=== PATIENT | male | born 1960 | race African-American/Black ===

== ENCOUNTER 2020-01-18 17:14 | Observation (INO) | payer BC, SELFPAY ==
--- NOTE | ~2020-01-18 | CT_ITS ---
EXAMINATION: CT abdomen pelvis wo con DATE: 01/18/2020 22:30 INDICATION: Left-sided upper abdominal pain TECHNIQUE: Computed tomography (CT) of the abdomen and pelvis was performed without intravenous contr ast. Automated exposure control and iterative reconstruction technique were employed. The dose-length product was 954.24 mGy-cm. COMPARISON: None FINDINGS: Patchy groundglass opacities in the bilateral lower lobes, left greater than right. Heart size is nor mal. Coronary artery stenting. No pericardial or pleural effusion. Small sliding-type hiatal hernia. A few small low-attenuation hepatic lesions the largest measuring 1 cm in the right hepatic lobe most likely representing hepatic cysts with differential including hemangioma. Gallbladder, spleen, pancr eas, bilateral adrenal glands and left kidney are normal. 3 mm nonobstructing stone in a middle calyx of the right kidney. Bladder is normal. A few scattered colonic diverticula without adjacent inflamm atory change to suggest diverticulitis. Small bowel and appendix are normal. No free intraperitoneal gas or fluid. No pathologically enlarged abdominal or pelvic lymphadenopathy. Moderate bilateral hip osteoarthritis. IMPRESSION: 1. Patchy groundglass opacities in the bilateral lower lobes concerning for pneumonia. Differential w ould include aspiration, atelectasis and pulmonary edema. Reviewed, dictated and finalized at location A. IMPRESSION: 1. Patchy groundglass opacities in the bilateral lower lobes concerning for pne umonia. Differential would include aspiration, atelectasis and pulmonary edema.
--- NOTE | ~2020-01-18 | XR_ITS ---
EXAMINATION: XR chest 2V DATE: 01/18/2020 20:04 INDICATION: Soreness of breath and left-sided chest pain TECHNIQUE: PA and lateral views of the chest were obtained. COMPARISON: Chest radiograph dated 05/10/2018 and 08/27/2017 FINDINGS: The lungs are clear with no focal airspace opacities, pulmonary edema, pleural effusion or pneumothor ax. The cardiomediastinal silhouette is normal. Mild thoracic spondylosis. IMPRESSION: 1. No acute cardiopulmonary disease. Reviewed, dictated and finalized at location A.
[2020-01-18 17:21] VITALS: BP 147/87; PULSE 93; RESP 16; TEMP 36.5; O2SAT 99
--- NOTE | 2020-01-18 17:21 | ECG_ITS ---
Measurements Intervals [place] Rate: 89 P: 40 [place]: 166 QRS: -2 QRSD: 81 T: 1 QT: 331 QTc: 404 Interpretive Statements SINUS RHYTHM NONSPECIFIC T-WAVE ABNORMALITY- ANT/INF LEADS BORDERLINE ECG Electronically Signed On 01-18-2020 21:04:24 CDT by Bryan Greenfield D.O.
[2020-01-18 17:38] LABS: Basophils Percent Auto 0.4 % (0.2-1.2); Eosinophils Absolute Auto 0.3 K/mm3 (0-0.3); Eosinophils Percent Auto 3.3 % (0-4.4); Hematocrit 36.3 % (42.0-52.0); Hemoglobin 12.3 g/dL (14.0-18.0); Immature Granulocyte Absolute 0.02 K/mm3 (0.00-0.031); Immature Granulocyte Percent A 0.2 % (0-0.5); Lymphocytes Absolute Auto 2.35 K/mm3 (0.9-3.2); Lymphocytes Percent Auto 25.8 % (18.3-44.2); Mean Corpuscular HGB Conc 33.9 g/dl (32-36); Mean Corpuscular Hemoglobin 33.3 pg (26-34); Mean Corpuscular Volume 98.4 fl (80-100); Mean Platelet Volume 10.7 fl (7.4-10.4); Monocytes Absolute Auto 0.6 K/mm3 (0.1-0.6); Neutrophils Absolute Auto 5.8 K/mm3 (1.3-6.7); Neutrophils Percent Auto 63.3 % (45.5-73.1); Platelet Count Result 227 k/mm3 (150-375); Red Blood Count 3.69 M/mm3 (4.6-6.20); White Blood Count 9.1 K/mm3 (4.5-10.0)
[2020-01-18 17:46] LABS: Prothrombin Time 12.5 Seconds (11.1-14.7)
[2020-01-18 18:00] LABS: Anion Gap 9 mmol/L (8-16); Blood Urea Nitrogen 28 mg/dL (9-20); Calcium 9.4 mg/dL (8.4-10.2); Carbon Dioxide 27 mmol/L (22-30); Chloride 103 mmol/L (98-107); Estimated CRCL calculation 50 ml/min; Estimated Glomerular Filt Rate 51; Glucose 104 mg/dL (75-110); Potassium 3.8 mmol/L (3.4-5.0); Sodium 139 mmol/L (137-145)
[2020-01-18 18:11] LABS: Troponin I 0.023 ng/mL (0.000-0.034)
[2020-01-18 20:45] VITALS: BP 160/78; PULSE 71; RESP 18; TEMP 36.4; O2SAT 97
[2020-01-18 21:13] LABS: Troponin I < 0.012 ng/mL (0.000-0.034)
--- NOTE | 2020-01-18 22:01 | ED.CHESTPAIN ---
HPI - Chest Pain General Chief Complaint: Chest Pain Stated Complaint: cp Time Seen by Provider: 01/18/20 21:52 Source: RN notes reviewed History of Present Illness HPI narrative: Patient presents emergency room from home for left-sided chest pain. Patient states that pain is been occurring intermittently for the past 3 weeks. The pain is located left chest with radiation to the right shoulder. States he has a history of 4 previous stents and is followed by Dr. Gallardo. He states that he has tried nitro at home that had initially helped but is no longer helping with the pain. He denies any fevers or chills shortness of breath nausea vomiting or any other symptoms Related Data Home Medications Medication Instructions Recorded Confirmed amlodipine 03/10/19 atorvastatin 03/10/19 clopidogrel 03/10/19 doxepin 03/10/19 duloxetine mg PO 03/10/19 ergocalciferol (vitamin D2) unit 03/10/19 [Vitamin D2] furosemide 03/10/19 gabapentin 03/10/19 losartan 03/10/19 metoprolol tartrate 03/10/19 spironolactone 03/10/19 Allergies Allergy/AdvReac Type Severity Reaction Status Date / Time No Known Drug Allergies Allergy Unknown * Verified 03/10/19 14:58 Review of Systems Review of Systems: Narrative: Gen.: Denies fevers or chills ENT: Denies congestion Respiratory: Denies shortness of breath or cough CV: See HPI GI: Denies abdominal pain nausea, emesis or diarrhea denies burning, urgency, frequency or hematuria Musculoskeletal: Denies back pain or muscle pain Neuro: Denies numbness, tingling, weakness or focal weakness Skin: Denies rash Except as documented, all other systems reviewed and negative PMF Past Medical History Medical History Arthritis CAD (coronary artery disease) Depression GERD (gastroesophageal reflux disease) History of angina History of kidney stones Hypercholesteremia Hypertension Meniere's disease Pneumonia Surgical History Surgical History (Updated 03/10/19 @ 15:45 by Favian Villeda) History of inguinal hernia repair History of tonsillectomy Hx of cardiac cath stents x4 Social History Social History Gender identity (if verbalized by the patient): Male Exam Narrative: Exam Narrative: APPEARANCE: No acute distress, nontoxic, resting in bed HEENT: Normocephalic, atraumatic, OMM RESPIRATORY: No respiratory distress, clear to auscultation bilaterally with no rhonchi wheezing or rales CARDIOVASCULAR: RRR s murmur ABDOMINAL: Soft, nondistended, tender palpation epigastric and left upper quadrant, no tenderness right upper quadrant, right lower quadrant left lower quadrant, no rebound or guarding MUSCULOSKELETAl: Moves all extremities. No clubbing, cyanosis or edema. NEURO: Awake and alert. Following commands, speech normal, no focal deficits SKIN:: Warm, dry. Normal Color PSYCHIATRIC: Normal affect/mood Course Course Emergency Course: Patient has minimal change with GI cocktail and resolution of pain with Nitropaste Plan CT scan again discussed with patient he denies any fevers or chills cough or shortness of breath Discussed with Dr. Watkins presentation work-up. Agrees with consult this time. Recommends no further anticoagulation as patient is already on daily aspirin and Plavix Discussed Dr. Peraza presentation work-up. Agrees with admission at this time. Discussed CT with Dr. Peraza no further testing at this time we will continue to observe Discussed with patient and family results of workup and diagnosis. Discussed need for admission. Patient and family understand and agree to current treatment plan Vital Signs Vital signs: Vital Signs Temperature 97.7 F 01/18/20 17:21 Pulse Rate 93 01/18/20 17:21 Respiratory Rate 16 01/18/20 17:21 Blood Pressure 147/87 H 01/18/20 17:21 Pulse Oximetry 99 01/18/20 17:21 Temperature 97.6 F 09
[2020-01-18 22:12] VITALS: BP 153/90; PULSE 82; RESP 18; O2SAT 100
[2020-01-18 22:25] LABS: Alanine Aminotransferase 17 U/L (4-50); Albumin Level 4.6 g/dL (3.5-5.1); Alkaline Phosphatase 102 U/L (38-126); Aspartate Amino Transferase 32 U/L (17-59); Bilirubin,Total 0.9 mg/dL (0.2-1.3); Lipase 35 U/L (23-300)
[2020-01-18 23:24] LABS: NT Pro B Type Natriuretic Pept 42 PG/ML (5-100)
[2020-01-18] MEDS: NITROGLYCERIN OINTMENT 1 INCH DOSE TRANSDERM (23:37)
[2020-01-19] VITALS (11 sets, daily range): BP systolic 129–157; BP diastolic 67–90; PULSE 65–79; RESP 18–20; TEMP 36.1–36.6; O2SAT 96–99; BMI 33.5
[2020-01-19 00:17] LABS: Troponin I < 0.012 ng/mL (0.000-0.034)
--- NOTE | 2020-01-19 01:45 | ADMGEN ---
This patient, Sammy Escamilla, was admitted to IMU Room 210-01 ([id number]). Patient/family oriented to hospital policies and general routines including ID bracelet, bed and alarms, visiting hours, pain management, procedures, bathroom and other care routines, personal items, smoking policy, room service/diet, and visiting hours. Valuables list has been completed. Information on how to activate the Rapid Response Team has been discussed. Patient/Family are encouraged to report perceived risks to care and to ask questions if they do not understand what they are told or what they should do.
--- NOTE | 2020-01-19 02:38 | ECG_ITS ---
Measurements Intervals [place] Rate: 71 P: 42 [place]: 196 QRS: -4 QRSD: 81 T: -10 QT: 386 QTc: 420 Interpretive Statements SINUS RHYTHM NONSPECIFIC T-WAVE ABNORMALITY- ANT/INF LEADS BASELINE ARTIFACT- I, II, III, AVR, AVF BORDERLINE ECG Electronically Signed On 01-19-2020 11:07:48 CDT by Bryan Greenfield D.O.
--- NOTE | 2020-01-19 03:12 | PM.IMHP ---
H&P: HPI History of Present Illness Date/Time: 01/19/20 03:12 Chief complaint: Chest pain Narrative: This is a pleasant 59-year-old male with known history of coronary artery disease status post #4 stents, Rheumatoid arthritis, hypertension, and hyperlipidemia who presented to the hospital for evaluation of severe left-sided chest pain. The patient has had intermittent left-sided chest pain for over a month now. He describes his chest pain as if an elephant was sitting on his chest. The patient's chest pain comes and goes without any rhyme or reason and he denies that his chest pain is positional, exertional, or pleuritic. The patient was previously using nitroglycerin for his chest pain although today that was ineffective. Around 4:00 p.m. this afternoon he started to develop severe left-sided chest pain that seemed to radiate towards his shoulder and did not improve with any medications at home. He decided to come to the hospital for evaluation. He denies any associated symptoms of nausea, vomiting, diaphoresis, or shortness of breath. patient is known to take aspirin daily. His last cardiac angiogram was when he had 4 stents placed. His last stress test was at [facility] approximately 6 months ago which he believes was normal at that time. the patient was evaluated emergency room this evening and his initial troponin was negative. EKG was unremarkable for any ST segment changes. ER provider has consulted Cardiology who has asked that we admit the patient to the hospital for cardiac rule out. On further questioning the patient denies any fevers, chills, headache, cough, shortness of breath, abdominal pain, nausea, vomiting, dysuria, diarrhea, hematuria, lower extremity swelling, lower extremity pain, or focal neurological deficits. No other complaints at this time and on my encounter with the patient he is asymptomatic. Review of Systems Review of Systems: All systems reviewed & are unremarkable except as noted in HPI and below PMFSH Past Medical History Medical History Arthritis CAD (coronary artery disease) Depression GERD (gastroesophageal reflux disease) History of angina History of kidney stones Hypercholesteremia Hypertension Meniere's disease Pneumonia Surgical History Surgical History History of inguinal hernia repair History of tonsillectomy Hx of cardiac cath stents x4 Family History Family History Mother Myocardial infarct Cancer Hypertension Father Myocardial infarct Social History Social History Smoking status: Never smoker Second hand tobacco smoke exposure: No Alcohol intake: current Substance use: never Substance use type: does not use Gender identity (if verbalized by the patient): Male Spiritual care concerns: No Meds Home Medications and Allergies Home Medications Medication Instructions Recorded Confirmed Type amlodipine 10 mg PO DAILY 03/10/19 01/19/20 History atorvastatin 40 mg PO DAILY 03/10/19 01/19/20 History clopidogrel 75 mg PO DAILY 03/10/19 01/19/20 History doxepin 25 mg PO DAILY 03/10/19 01/19/20 History duloxetine 60 mg PO DAILY 03/10/19 01/19/20 History ergocalciferol (vitamin D2) 5,000 unit PO DAILY 03/10/19 01/19/20 History [Vitamin D2] furosemide 20 mg PO DAILY 03/10/19 01/19/20 History gabapentin 1,200 mg PO HS 03/10/19 01/19/20 History losartan 100 mg PO DAILY 03/10/19 01/19/20 History metoprolol tartrate 25 mg PO BID 03/10/19 01/19/20 History spironolactone 25 mg PO DAILY 03/10/19 01/19/20 History aspirin 81 mg PO DAILY 01/19/20 01/19/20 History losartan 100 mg PO DAILY 01/19/20 01/19/20 History oxycodone 40 mg PO BID 01/19/20 01/19/20 History oxycodone-acetaminophen [Percocet] 1 tablet PO Q4H PRN 01/19/20
[2020-01-19] MEDS: SODIUM CHLORIDE 0.9% IV 1,000 ML 80 ML IV CONT (03:31)
[2020-01-19 05:45] LABS: Cholesterol 143 mg/dL (0-200); HDL Direct 38 mg/dL; Triglycerides 156 mg/dL (<150)
[2020-01-19 05:51] LABS: Anion Gap 5 mmol/L (8-16); Blood Urea Nitrogen 21 mg/dL (9-20); Calcium 8.8 mg/dL (8.4-10.2); Carbon Dioxide 31 mmol/L (22-30); Chloride 104 mmol/L (98-107); Estimated CRCL calculation 72 ml/min; Estimated Glomerular Filt Rate > 60; Glucose 130 mg/dL (75-110); Sodium 140 mmol/L (137-145)
[2020-01-19 05:55] LABS: LDL Cholesterol Direct 76 mg/dL
--- NOTE | 2020-01-19 09:23 | PM.CNCAR ---
Assessment and Plan Assessment and plan (1) Atypical chest pain: Code(s): R07.89 - Other chest pain Status: Acute Assessment and Plan: 59-year-old male with CAD, history of multiple PCI/stent placements of LAD, RCA and LCX; hypertension, dyslipidemia. Patient presented with symptoms of chest pain with features somewhat atypical for myocardial ischemia. His EKG does not show any acute ST segment abnormality, serial troponins are negative. Apparently, patient had stress test earlier this year at [facility] which according patient was unremarkable. -at this time, continuation of optimal medical treatment would be appropriate which includes dual antiplatelet therapy, beta-keith, ARB and statin. -recent stress test results will be requested from outside hospital. Need for further ischemic evaluation can be determined as an outpatient based on patient's clinical course. 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 (2) CAD (coronary artery disease): Code(s): I25.10 - Atherosclerotic heart disease of [place] coronary artery without angina pectoris Status: Chronic History of Present Illness History of Present Illness Consult date/time: 01/19/20 09:23 Date of consult: 01/19/2020 Reason for consult: Chest pain Requesting physician: Chief complaint: Chest pain HPI: 59-year-old male with CAD, history of multiple PCI/stent placements of LAD, RCA and LCX; hypertension, dyslipidemia, CKD. Patient presented to [facility] on 01/18/2020 with complaints of chest discomfort. Patient reports that he has been experiencing episodes of chest discomfort for about 1 month. He describes the chest pain as sharp sensation in the left inframammary area which radiates in a bandlike fashion posteriorly, last for 5-10 seconds, and is nonexertional. Patient denies any chest discomfort with activity. He denies shortness of breath, palpitation, dizziness or syncope. Patient reports that he had stress test done at [facility] earlier distally are which according to patient was unremarkable. Patient states that his primary care physician ordered that test. Review of patient's old medical records indicate that he had cardiac catheterization done on 10/24/2017 at [facility] by Dr. Lira in the setting of abnormal TID on MPI. His cardiac catheterization reportedly showed normal left main, patent LAD and proximal-mid RCA stent; minimal luminal irregularities LCX. He was continued on optimal medical treatment. EKG on this admission which I personally evaluated shows sinus rhythm, nonspecific T-wave abnormality, not significantly changed compared to old EKG. Serial troponins are negative. He reports compliance with current medical regimen including antiplatelet therapy. Patient is a nonsmoker. Reason For Visit: Chest pain Review of Systems Review of Systems: Narrative: General: Negative for fever, chills, fatigue Psychological: Negative for anxiety, depression Ophthalmic: negative for loss of vision ENT: Negative for epistaxis, headaches Allergy and immunology: Negative for hives, nasal congestion Hematologic and lymphatic: Negative for overt bleeding problems Endocrine: Negative for hot flashes, palpitations Respiratory: Negative for cough, hemoptysis Cardiovascular: Positive for nonexertional chest pain; negative for shortness of breath, leg swelling, palpitations, dizziness, syncope Gastrointestinal: Negative for abdominal pain, nausea, vomiting, hematochezia Musculoskeletal: Negative for myalgia, joint pains Neurological: Negative for weakness Dermatological: Negative for rash, skin discoloration PMFSH Past Medical History Medical History Arthritis CAD (coronary artery disease) Depression GERD (gastroesophageal reflux disease) History of buster
[2020-01-19] MEDS: amLODIPine BESYLATE 5 MG TABLET 10 MG PO (09:44)
[2020-01-19] MEDS: ATORVASTATIN 40 MG TABLET PO (09:44)
[2020-01-19] MEDS: DULoxetine HCL 60 MG CAPSULE.DR PO (09:44)
[2020-01-19] MEDS: CHOLECALCIFEROL 1,000 UNITS TABLET 5000 UNITS PO (09:45)
[2020-01-19] MEDS: ASPIRIN 81 MG CHEWABLE TABLET PO (09:45)
[2020-01-19] MEDS: METOPROLOL TARTRATE 25 MG TABLET PO (09:45)
[2020-01-19] MEDS: DOXEPIN HCL 25 MG CAPSULE PO (09:45)
[2020-01-19] MEDS: CLOPIDOGREL BISULFATE 75 MG TABLET PO (09:46)
[2020-01-19] MEDS: oxyCODONE/ACETAMINOPHEN (*CRX) 5-325 MG TABLET 1 TABLET PO (10:14)
[2020-01-19] MEDS: oxyCODONE HCL (*CRX) 20 MG TAB SR 12HR 40 MG PO (10:15)
[2020-01-19] MEDS: OXYCODONE 5 MG TABLET PO (10:15)
--- NOTE | 2020-01-19 12:59 | PM.DS ---
DS: Admitting Diagnosis Admitting Diagnosis Admitting Diagnosis: Chest pain DS: Discharge Diagnosis Discharge Diagnosis (1) Chest pain: Code(s): R07.9 - Chest pain, unspecified Status: Acute Assessment and Plan: Admit for observation to IMU, telemetry, NPO. Trend troponin. Monitor for chest pain. Continue aspirin therapy. Continue nitroglycerin as needed for chest pain. Check lipid panel in a.m.. Cardiology has been consulted by ER provider. Appreciate cardiology input. (2) Acute renal failure: Code(s): N17.9 - Acute kidney failure, unspecified Status: Acute Assessment and Plan: continue IV fluid challenge. Monitor urine output and renal function. Avoid nephrotoxin agents. Renally dose medications. We will consider renal ultrasound if the patient's renal function does not improve in the morning. (3) Chronic anemia: Code(s): D64.9 - Anemia, unspecified Status: Chronic Assessment and Plan: No signs of acute blood loss. Likely anemia of chronic disease. Monitor H&H, transfuse p.r.n.. (4) CAD (coronary artery disease): Code(s): I25.10 - Atherosclerotic heart disease of [place] coronary artery without angina pectoris Status: Chronic Assessment and Plan: Monitor for chest pain. Continue aspirin, Plavix, and beta-keith. (5) GERD (gastroesophageal reflux disease): Code(s): K21.9 - Gastro-esophageal reflux disease without esophagitis Status: Chronic Assessment and Plan: Continue Protonix therapy. (6) Hypercholesteremia: Code(s): E78.00 - Pure hypercholesterolemia, unspecified Status: Chronic Assessment and Plan: continue atorvastatin. (7) Hypertension: Code(s): I10 - Essential (primary) hypertension Status: Chronic Assessment and Plan: Stable. Monitor blood pressure. Continue amlodipine and metoprolol. (8) Rheumatoid arthritis: Code(s): M06.9 - Rheumatoid arthritis, unspecified Status: Chronic Assessment and Plan: Stable. DS: Summary Hospital Course Reason for hospitalization: Chief complaint: Chest pain Narrative: This is a pleasant 59-year-old male with known history of coronary artery disease status post #4 stents, Rheumatoid arthritis, hypertension, and hyperlipidemia who presented to the hospital for evaluation of severe left-sided chest pain. The patient has had intermittent left-sided chest pain for over a month now. He describes his chest pain as if an elephant was sitting on his chest. The patient's chest pain comes and goes without any rhyme or reason and he denies that his chest pain is positional, exertional, or pleuritic. The patient was previously using nitroglycerin for his chest pain although today that was ineffective. Around 4:00 p.m. this afternoon he started to develop severe left-sided chest pain that seemed to radiate towards his shoulder and did not improve with any medications at home. He decided to come to the hospital for evaluation. He denies any associated symptoms of nausea, vomiting, diaphoresis, or shortness of breath. patient is known to take aspirin daily. His last cardiac angiogram was when he had 4 stents placed. His last stress test was at [facility] approximately 6 months ago which he believes was normal at that time. the patient was evaluated emergency room this evening and his initial troponin was negative. EKG was unremarkable for any ST segment changes. ER provider has consulted Cardiology who has asked that we admit the patient to the hospital for cardiac rule out. On further questioning the patient denies any fevers, chills, headache, cough, shortness of breath, abdominal pain, nausea, vomiting, dysuria, diarrhea, hematuria, lower extremity swelling, lower extremity pain, or focal neurological deficits. No other complaints at this time and on my encounter with the patient he i
== END 2020-01-19 13:35 | disposition home or self-care (01) ==
LOC: ANHED 01-19 00:17 → ANHIMU 01-19 03:17
PROVIDERS: Emergency Medicine; Admitting Provider Family Medicine; Emergency Provider Emergency Medicine; Visit Provider Family Medicine
DX: R07.9 Chest pain, unspecified (principal); Z95.5 Presence of coronary angioplasty implant and graft; Z79.02 Long term (current) use of antithrombotics/antiplatelets; I25.10 Atherosclerotic heart disease of native coronary artery without angina pectoris; K21.9 Gastro-esophageal reflux disease without esophagitis; E78.00 Pure hypercholesterolemia, unspecified; I10 Essential (primary) hypertension; H81.09 Meniere's disease, unspecified ear; R91.8 Other nonspecific abnormal finding of lung field; N17.9 Acute kidney failure, unspecified; D64.9 Anemia, unspecified; M06.9 Rheumatoid arthritis, unspecified
CPT/HCPCS: 36415; 71046; 74176; 80048; 80061; 80076; 83690; 83880; 84484; 85025; 85610; 85730; 93005; 96360; 96361; 99285; A9270; G0378; J7030

== ENCOUNTER 2020-10-04 21:25 | Observation (INO) | payer BC, SELFPAY ==
--- NOTE | ~2020-10-04 | XR_ITS ---
EXAMINATION: XR chest 2V EXAM DATE: 10/04/2020 22:00 INDICATION: Left-sided chest pain, clinical hands, hypertension, 4stent placements. TECHNIQUE: Frontal and lateral projections of the chest obtained and reviewed. Comparison is made to prior examination from 01/18/2020. FINDINGS: The lungs are clear. There are no pleural effusions. The cardiomediastinal silhouette is within normal limits. Left anterior descending coronary artery stents identified. There is no pneumot horax suspected. The bones and soft tissues are unremarkable. IMPRESSION: No acute cardiopulmonary findings. Reviewed, dictated and finalized at location G.
--- NOTE | ~2020-10-04 | NM_ITS ---
EXAMINATION: NM jesus stress w perfusion DATE: 10/06/2020 16:20 INDICATION: Chest pain TECHNIQUE: Rest images were obtained following intravenous administration of 10.3 mCi Tc99m tetrofosm in (Myoview). The patient was infused intravenously with Lexiscan (Regadenoson). Then, 33.6 mCi Tc99m tetrofosmin (Myoview) was administered intravenously, and stress images were obtained. Data was laz nstructed into short axis and horizontal and vertical long axis SPECT images. Gated SPECT images were also obtained. COMPARISON: None. FINDINGS: There is no definite reversible or fixed perfusion abnormality to suggest ischemia or infar ction. There is normal left ventricular chamber size, wall motion and ejection fraction. Left ventr icular ejection fraction measures >70%. IMPRESSION: 1. Normal myocardial perfusion at rest and during stress. 2. Left ventricular ejection fraction measuring >70%. Reviewed, dictated and finalized at location A.
--- NOTE | 2020-10-04 21:34 | ECG_ITS ---
Measurements Intervals [place] Rate: 97 P: 40 [place]: 152 QRS: 5 QRSD: 82 T: 18 QT: 326 QTc: 416 Interpretive Statements SINUS RHYTHM INFERIOR INFARCT, AGE INDETERMINATE BORDERLINE T WAVE ABNORMALITY- ANTERIOR LEADS ABNORMAL ECG Electronically Signed On 10-05-2020 5:50:56 CDT by Bryan Greenfield D.O.
[2020-10-04 21:42] VITALS: BP 124/79; PULSE 99; RESP 20; TEMP 36.7; O2SAT 100
[2020-10-04 21:57] LABS: Basophils Percent Auto 0.6 % (0.2-1.2); Eosinophils Absolute Auto 0.1 K/mm3 (0-0.3); Eosinophils Percent Auto 0.8 % (0-4.4); Hematocrit 39.6 % (42.0-52.0); Hemoglobin 13.2 g/dL (14.0-18.0); Immature Granulocyte Absolute 0.01 K/mm3 (0.00-0.031); Immature Granulocyte Percent A 0.2 % (0-0.5); Lymphocytes Absolute Auto 2.45 K/mm3 (0.9-3.2); Mean Corpuscular HGB Conc 33.3 g/dl (32-36); Mean Corpuscular Hemoglobin 33.2 pg (26-34); Mean Corpuscular Volume 99.7 fl (80-100); Mean Platelet Volume 10.5 fl (7.4-10.4); Monocytes Absolute Auto 0.6 K/mm3 (0.1-0.6); Monocytes Percent Auto 9.2 % (2.6-8.5); Neutrophils Absolute Auto 3.2 K/mm3 (1.3-6.7); Neutrophils Percent Auto 50.2 % (45.5-73.1); Platelet Count Result 333 k/mm3 (150-375); Red Blood Count 3.97 M/mm3 (4.6-6.20); Red Cell Distribution Width 12.3 % (11.5-14.5); White Blood Count 6.3 K/mm3 (4.5-10.0)
[2020-10-04 22:06] LABS: Anion Gap 15 mmol/L (8-16); Blood Urea Nitrogen 21 mg/dL (9-20); Calcium 9.9 mg/dL (8.4-10.2); Carbon Dioxide 21 mmol/L (22-30); Chloride 106 mmol/L (98-107); Estimated CRCL calculation 40 ml/min; Estimated Glomerular Filt Rate 40; Glucose 99 mg/dL (75-110); Potassium 3.8 mmol/L (3.4-5.0); Prothrombin Time 13.7 Seconds (11.1-14.7); Sodium 142 mmol/L (137-145)
[2020-10-04 22:07] LABS: Partial Thromboplastin Time 25.7 SECONDS (22.3-36.8)
[2020-10-04 22:17] LABS: Troponin I 0.016 ng/mL (0.000-0.034)
--- NOTE | 2020-10-04 23:53 | ED.GENADULT ---
HPI - General Adult General Chief complaint: Chest Pain Stated complaint: Chest pain Time Seen by Provider: 10/04/20 23:44 History of Present Illness HPI narrative: Patient 60-year-old gentleman who presents the emergency department with chief complaint of chest pain. Patient reports that for the last couple weeks has been having some discomfort in his chest states that it radiates to his arm the patient states that both a sharp type discomfort and also pressure. Patient reports he has history of multiple stents placed over the years and his last one was done in 2019. Patient states that is not improved by anything patient reports that he saw his primary care physician today and they recommended he come to the emergency department since he has history of heart disease. Patient states he sees Dr. Gallardo for cardiology Related Data Home Medications Medication Instructions Recorded Confirmed amlodipine 10 mg PO DAILY 03/10/19 01/19/20 atorvastatin 40 mg PO DAILY 03/10/19 01/19/20 clopidogrel 75 mg PO DAILY 03/10/19 01/19/20 doxepin 25 mg PO DAILY 03/10/19 01/19/20 duloxetine 60 mg PO DAILY 03/10/19 01/19/20 ergocalciferol (vitamin D2) 5,000 unit PO DAILY 03/10/19 01/19/20 [Vitamin D2] furosemide 20 mg PO DAILY 03/10/19 01/19/20 gabapentin 1,200 mg PO HS 03/10/19 01/19/20 losartan 100 mg PO DAILY 03/10/19 01/19/20 metoprolol tartrate 25 mg PO BID 03/10/19 01/19/20 spironolactone 25 mg PO DAILY 03/10/19 01/19/20 aspirin 81 mg PO DAILY 01/19/20 01/19/20 losartan 100 mg PO DAILY 01/19/20 01/19/20 oxycodone 40 mg PO BID 01/19/20 01/19/20 oxycodone-acetaminophen [Percocet] 1 tablet PO Q4H PRN 01/19/20 01/19/20 pantoprazole [Protonix] 40 mg PO HS 01/19/20 01/19/20 temazepam 30 mg PO HS PRN 01/19/20 01/19/20 Allergies Allergy/AdvReac Type Severity Reaction Status Date / Time No Known Drug Allergies Allergy Unknown * Verified 03/10/19 14:58 Review of Systems Review of Systems: Narrative: A 10 system review of systems was completed on the patient and is negative except for what is stated in the HPI. Nursing and ancillary documentation was reviewed. [facility] Past Medical History Medical History (Updated 10/05/20 @ 04:32 by Anand Gregory MD) Arthritis CAD (coronary artery disease) Depression GERD (gastroesophageal reflux disease) History of angina History of kidney stones Hypercholesteremia Hypertension Meniere's disease Pneumonia Surgical History Surgical History History of inguinal hernia repair History of tonsillectomy Hx of cardiac cath stents x4 Family History Family History Mother Myocardial infarct Cancer Hypertension Father Myocardial infarct Social History Social History Smoking status: Never smoker Second hand tobacco smoke exposure: No Alcohol intake: current Substance use: never Substance use type: does not use Gender identity (if verbalized by the patient): Male Spiritual care concerns: No Exam Narrative: Exam Narrative: GENERAL: Well-appearing, well-nourished, and in no acute distress. HEAD: Normocephalic, atraumatic. EYES: PERRLA and EOMI. ENT: Nares clear, no rhinorrhea or epistaxis. Mucous membranes moist. NECK: Supple. CHEST: Clear to auscultation. No respiratory distress. HEART: Regular rate and rhythm. No murmur heard. Normal peripheral pulses. ABDOMEN: Soft, nontender, nondistended, normal active bowel sounds. EXTREMITIES: Normal range of motion. No edema. SKIN: Warm, dry, no rash. NEURO: No focal deficits. Alert and oriented x3. PSYCH: Normal mood and affect. Course Vital Signs Vital signs: Vital Signs Temperature 36.7 C 10/04/20 21:42 Pulse Rate 99 10/04/20 21:42 Respiratory Rate 20 10/04/20 21:42 Blood Pressure 124/79 10/04/20 21:42 Pulse Oxime
[2020-10-04] MEDS: ASPIRIN 81 MG CHEWABLE TABLET 324 MG PO (23:59)
[2020-10-05] VITALS (48 sets, daily range): BP systolic 135–161; BP diastolic 71–95; PULSE 60–88; RESP 12–18; TEMP 36.1–36.9; O2SAT 94–100; BMI 32.1
[2020-10-05 02:02] LABS: Troponin I 0.016 ng/mL (0.000-0.034)
[2020-10-05] MEDS: SODIUM CHLORIDE 0.9% IV 1,000 ML 999 ML IV CONT (04:53)
[2020-10-05 05:09] LABS: Troponin I 0.021 ng/mL (0.000-0.034)
--- NOTE | 2020-10-05 06:14 | PC.NURSE ---
Floor nurse states room is not ready, that they are cleaning the room .
--- NOTE | 2020-10-05 06:40 | PC.NURSE ---
floor nurse Missy states floor is just now dry and its ok to send pt up.
--- NOTE | 2020-10-05 07:05 | PC.NURSE ---
This patient, Sammy Escamilla, was admitted to IMU Room 212-01. Patient/family oriented to hospital policies and general routines including ID bracelet, bed and alarms, visiting hours, pain management, procedures, bathroom and other care routines, personal items, smoking policy, room service/diet, and visiting hours. Information on how to activate the Rapid Response Team has been discussed. Patient/Family are encouraged to report perceived risks to care and to ask questions if they do not understand what they are told or what they should do.
[2020-10-05] MEDS: SODIUM CHLORIDE 0.9% IV 1,000 ML 125 ML IV CONT ×2 (07:58→16:05)
--- NOTE | 2020-10-05 08:55 | PM.CNCAR ---
Assessment and Plan Additional Plan This is a 60-year-old man known to have multivessel coronary disease has had PCI of all of his coronary arteries in the past. He did have a angiogram most recently in 2018 that did not show any significant coronary lesions. His symptoms with which she presents are rather atypical and there has been a down turn in his renal function by laboratory measurement as I mentioned above. For that reason I would not consider it prudent to return him to the high density press laborer for a follow-up angiogram today. I discussed the option of nuclear stress testing for ischemia evaluation with the patient. He then discussed for a long time that he has had previous admissions with these sorts of symptoms and commonly does have a coronary lesion with which he presents and he would prefer to have a follow-up angiogram performed in this setting. For that reason I told him we will discontinue his furosemide and continue IV saline hydration today. If he shows improvement or hopefully normalization his creatinine we will consider proceeding with a follow-up angiogram tomorrow. Will order another BMP for this evening and again for tomorrow morning. I would recommend continuing the remainder of his medical regimen as detailed in the chart but not be diuretics for the time being. It does not appear that any of his home medications have been ordered at this time. Luan Osei MD [facility] History of Present Illness History of Present Illness Consult date/time: 10/05/20 08:55 Consult reason: chest pain Reason For Visit: Chest pain, renal insufficiency Narrative: This is a 60-year-old man that I am seeing at the request of the hospitalist because of chest pain with which he was admitted from the emergency room last evening. He has a known history of coronary artery disease and follows with Dr. Gallardo of our practice regarding his coronary disease. He states that he has been feeling essentially well in recent months and but about 2-3 weeks ago started to have symptoms that have raise concern on his part. He has episodes where his arms feel weak and his palms become clammy. Some of these episodes are then associated with the sense of some chest pain that he describes as a sharp knife-like pain in the epigastric to low substernal region. The discomfort seems to come and go in unpredictable fashion each episode lasts between 1-2 minutes at a time and then subsides. He indicates these are not occurring in an exertional fashion he has been caring on his normal activities of life and has not been avoiding activity because of this. He saw his primary care physician yesterday who discuss this with him and electrocardiogram was done in the office which he states looked favorable. His physician practices out at [facility]. He was told by his physician to come to the emergency room with the symptoms and so he came over to [facility] last night. The patient's electrocardiogram is benign there are some small inferior Q-waves but there are no changes in the tracing compared to his previous cardiograms in the chart. He has 3 troponin levels that are negative. His laboratory date also demonstrates a decline in his renal function. Creatinine level was 1.2 in December of last year and is now 2.1 giving him an EGFR of under 40. The patient according to our records is not known to have systolic left ventricular dysfunction. The last entry in the chart from Dr. jaime indicates that there was some concern about his renal function and spironolactone was discontinued. He was also taking furosemide. The medication list in the chart includes spironolactone which the patient indicates his an air he has not been taking that medication but he has been on his Lasix. I do not have a specific indication for the loop diuretic upon reviewing the chart. Review of Systems Review of Systems: ROS unobtainable: Yes unobtainable due to medical condition Constitutional: Constit
--- NOTE | 2020-10-05 12:03 | PM.IMHP ---
H&P: HPI History of Present Illness Date/Time: 10/05/20 12:04 Chief Complaint: chest pain Narrative: Patient 60-year-old gentleman who presents the emergency department with chief complaint of chest pain, on and off since past few weeks now. the chest pain is in his left precodrium, sharp stabbing in nature, non radiating. not assocaited with cehst pain or sob, but he gets sweaty in his hands whenever he get them. he also feels he is getting sob to get up and move around. no leg swelling. no nausea, vomiting, abdominal pain. no bleding. he has hx of cardiac stents, one in 2011, then in 2017 and last 2 in 2019. he has not had recent stress test or echo test done. sees Dr. Brand. no fever, chills, cough. Review of Systems Review of Systems: Narrative: - CONSTITUTIONAL: Denies weight loss, fever and chills. - HEENT: Denies changes in vision and hearing - RESPIRATORY: Denies SOB and cough. - CV: Denies palpitations and reports CP. - GI: Denies abdominal pain, nausea, vomiting and diarrhea. - : Denies dysuria and urinary frequency. - MSK: Denies myalgia and joint pain. - SKIN: Denies rash and pruritus. - NEUROLOGICAL: Denies headache and syncope. - PSYCHIATRIC: Denies recent changes in mood. Denies anxiety and depression. All systems reviewed & are unremarkable except as noted in HPI and below Neurologic: Reports weakness Endocrine: Endocrine: Reports fatigue PMFSH Past Medical History Medical History (Updated 10/05/20 @ 04:32 by Anand Gregory MD) Arthritis CAD (coronary artery disease) Depression GERD (gastroesophageal reflux disease) History of angina History of kidney stones Hypercholesteremia Hypertension Meniere's disease Pneumonia Surgical History Surgical History History of inguinal hernia repair History of tonsillectomy Hx of cardiac cath stents x4 Family History Family History Mother Myocardial infarct Cancer Hypertension Father Myocardial infarct Social History Social History Smoking status: Never smoker Second hand tobacco smoke exposure: No Alcohol intake: never Substance use: never Substance use type: does not use Gender identity (if verbalized by the patient): Male Spiritual care concerns: No Meds Home Medications and Allergies Home Medications Medication Instructions Recorded Confirmed Type amlodipine 10 mg PO DAILY 03/10/19 10/05/20 History atorvastatin 40 mg PO DAILY 03/10/19 10/05/20 History clopidogrel 75 mg PO DAILY 03/10/19 10/05/20 History doxepin 50 mg PO HS 03/10/19 10/05/20 History duloxetine 60 mg PO DAILY 03/10/19 10/05/20 History ergocalciferol (vitamin D2) 50,000 unit PO WEEKLY 03/10/19 10/05/20 History [Vitamin D2] furosemide 20 mg PO DAILY 03/10/19 10/05/20 History gabapentin 1,200 mg PO HS 03/10/19 10/05/20 History losartan 100 mg PO DAILY 03/10/19 10/05/20 History metoprolol tartrate 25 mg PO Q12H 03/10/19 10/05/20 History aspirin 81 mg PO DAILY 01/19/20 10/05/20 History oxycodone 40 mg PO Q12H 01/19/20 10/05/20 History oxycodone-acetaminophen [Percocet] 1 tablet PO Q6H PRN 01/19/20 10/05/20 History pantoprazole [Protonix] 40 mg PO HS 01/19/20 10/05/20 History temazepam 30 mg PO HS PRN 01/19/20 10/05/20 History Allergies Allergy/AdvReac Type Severity Reaction Status Date / Time No Known Drug Allergies Allergy Unknown * Verified 10/05/20 07:47 Vital Signs Vital Signs - 24 hr 10/04/20 21:42 10/05/20 00:01 10/05/20 00:02 Temperature 98.1 F Pulse Rate 99 84 83 Respiratory Rate 20 14 Blood Pressure 124/79 161/95 H Pulse Oximetry 100 98 99 10/05/20 00:17 10/05/20 00:29 10/05/20 00:30 Temperature 97.9 F Pulse Rate 79 75 77 Respiratory Rate 18 12 Blood Pressure 161/90 H Pulse Oximetry 99 100 100 10/05/20 00:4
[2020-10-05] MEDS: oxyCODONE HCL (*CRX) 40 MG TAB SR 12HR PO ×2 (13:33→21:13)
[2020-10-05] MEDS: ATORVASTATIN 40 MG TABLET PO (14:24)
[2020-10-05] MEDS: METOPROLOL TARTRATE 25 MG TABLET PO ×2 (14:24→21:13)
[2020-10-05] MEDS: DULoxetine HCL 60 MG CAPSULE.DR PO (14:24)
[2020-10-05] MEDS: CLOPIDOGREL BISULFATE 75 MG TABLET PO (14:24)
[2020-10-05] MEDS: amLODIPine BESYLATE 5 MG TABLET 10 MG PO (14:24)
[2020-10-05 18:31] LABS: Anion Gap 9 mmol/L (8-16); Blood Urea Nitrogen 20 mg/dL (9-20); Calcium 8.9 mg/dL (8.4-10.2); Carbon Dioxide 23 mmol/L (22-30); Chloride 109 mmol/L (98-107); Estimated CRCL calculation 69 ml/min; Estimated Glomerular Filt Rate > 60; Glucose 123 mg/dL (75-110); Potassium 3.7 mmol/L (3.4-5.0); Sodium 141 mmol/L (137-145)
[2020-10-05] MEDS: GABAPENTIN 400 MG CAPSULE 1200 MG PO (21:13)
[2020-10-05] MEDS: DOXEPIN HCL 25 MG CAPSULE 50 MG PO (21:13)
[2020-10-05] MEDS: PANTOPRAZOLE 40 MG TABLET PO (21:13)
[2020-10-06] VITALS (26 sets, daily range): BP systolic 114–142; BP diastolic 58–80; PULSE 59–98; RESP 10–21; TEMP 35.6–37.1; O2SAT 95–100
[2020-10-06] MEDS: SODIUM CHLORIDE 0.9% IV 1,000 ML 125 ML IV CONT ×2 (00:27→08:14)
[2020-10-06 06:16] LABS: Eosinophils Absolute Auto 0.1 K/mm3 (0-0.3); Eosinophils Percent Auto 4.5 % (0-4.4); Hematocrit 32.3 % (42.0-52.0); Hemoglobin 10.5 g/dL (14.0-18.0); Immature Granulocyte Absolute 0.01 K/mm3 (0.00-0.031); Immature Granulocyte Percent A 0.3 % (0-0.5); Lymphocytes Absolute Auto 1.99 K/mm3 (0.9-3.2); Lymphocytes Percent Auto 64.6 % (18.3-44.2); Mean Corpuscular HGB Conc 32.5 g/dl (32-36); Mean Corpuscular Hemoglobin 33.4 pg (26-34); Mean Corpuscular Volume 102.9 fl (80-100); Mean Platelet Volume 10.7 fl (7.4-10.4); Monocytes Absolute Auto 0.3 K/mm3 (0.1-0.6); Monocytes Percent Auto 8.4 % (2.6-8.5); Neutrophils Absolute Auto 0.7 K/mm3 (1.3-6.7); Neutrophils Percent Auto 21.2 % (45.5-73.1); Platelet Count Result 256 k/mm3 (150-375); Red Blood Count 3.14 M/mm3 (4.6-6.20); Red Cell Distribution Width 12.3 % (11.5-14.5); White Blood Count 3.1 K/mm3 (4.5-10.0)
[2020-10-06 06:37] LABS: Anion Gap 6 mmol/L (8-16); Blood Urea Nitrogen 14 mg/dL (9-20); Calcium 8.8 mg/dL (8.4-10.2); Carbon Dioxide 23 mmol/L (22-30); Chloride 112 mmol/L (98-107); Estimated CRCL calculation 82 ml/min; Estimated Glomerular Filt Rate > 60; Glucose 98 mg/dL (75-110); Sodium 141 mmol/L (137-145)
[2020-10-06] MEDS: CLOPIDOGREL BISULFATE 75 MG TABLET PO (08:14)
[2020-10-06] MEDS: ATORVASTATIN 40 MG TABLET PO (08:14)
[2020-10-06] MEDS: oxyCODONE HCL (*CRX) 40 MG TAB SR 12HR PO ×2 (08:15→20:58)
[2020-10-06] MEDS: amLODIPine BESYLATE 5 MG TABLET 10 MG PO (08:15)
[2020-10-06] MEDS: METOPROLOL TARTRATE 25 MG TABLET PO ×2 (08:15→20:57)
[2020-10-06] MEDS: ASPIRIN 81 MG CHEWABLE TABLET PO (08:15)
[2020-10-06] MEDS: DULoxetine HCL 60 MG CAPSULE.DR PO (08:15)
--- NOTE | 2020-10-06 10:51 | WPDHPUPDATE1 ---
History and Physical Update Update Date/Time: 10/06/20 10:51 History and Physical has been reviewed, including an updated exam of the patient. There are NO changes in the patient's condition. Risks, benefits, and alternatives have been discussed and questions answered. Patient agrees to proceed with procedure.
--- NOTE | 2020-10-06 10:52 | P.PCNCC_ITS ---
Cardiac Cath Procedure Note Date of procedure:: 10/06/20 Performing physician:: Alison Lira MD Date of service: 10/06/2020 Indication:: recurrent chest pain. Brief clinical history:: this is the 60-year-old patient with past history of hypertension, coronary artery disease with stent in the RCA and distal LAD who presents to us for recurrent episodes of chest pain. On admission his creatinine was 2 and today is 1 after IV hydration. Risks and benefits of cardiac catheterization discussed with the patient agrees to proceed. Procedure Procedure performed:: 1-Moderate sedation that started at 11:19 a.m.and ended at 11:52 a.m. with total duration 43 minutes using 3mg of Versed and 75mcg fentanyl. The registered nurse was arpit white 2-Selective left and right coronary angiogram. 3-Left heart catheterization with measurement of LVEDP and measurement of gradient across aortic valve. 4-Right common femoral arterial angiogram. 5-Deployment of 6 [place] Angio-Seal. 6- attempted IFR LAD which could not be done due to technical issues in the malthouse laborer. Sedation/Medication given:: Moderate sedation. Access site:: Right common femoral artery. Estimated blood loss:: 10cc Procedure note:: After informed consent patient was brought in to malthouse laborer with the was draped and prepped in usual manner. Moderate sedation was given and the right groin was infiltrated using 1% lidocaine. Five [place] sheath was obtained using micropuncture needle and the modified Seldinger technique. Selective left coronary angiogram was done using JL4 catheter with the tip of the catheter placed in the left main coronary artery. Selective right coronary angiogram was done using JR4 catheter with the tip of the catheter placed to the right coronary artery. After that 5 [place] pigtail catheter was advanced across the aortic valve into the left ventricle with measurement of LVEDP and measurement of gradient across aortic valve. Right common femoral arterial angiogram was done. after that the 5 [place] sheath was upgraded to 6 [place] sheath then we went with a guide catheter 6 [place] CLS 3.5. Pressure wire zeroed outside the body however when we advanced it to the aorta we could not see aortic pressure. Troubleshooting was done and then changing of IFR wire was done and again we faced similar issue. Unfortunately we could not complete IFR measurement. 6 [place] Angio-Seal deployed Findings:: 1- left coronary artery is a large artery that divides into large LAD, large circumflex artery. Left main isFree of disease. 2- left anterior descending artery is a large artery that runs and wraps around the apex. Has a patent stent distally at the apex. In the mid segment there is about 60% stenosis and Worst in the NOLAND caudal views. large diagonal branch of the segment with diffuse irregularities. 3- leftcircumflex artery is a large artery With minimal irregularities in the mid segment large OM1 with minimal irregularities. 4- right coronary artery is Large artery dominant and has patent stents proximally and then the mid segment. 5- LVEDP was 15 mm Hg and no gradient across aortic valve. 6- opening arterial pressure was 1671/100 and closing pressure was 140/90 7- right femoral artery angiogram shows no significant disease in the right common femoral artery. 8- attempted IFR of the LAD which could not be performed due to technical issues in the malthouse laborer. Conclusion:: Intermediate lesion in the LAD with inability to do IFR in the malthouse laborer despite attempt to do that due to technical issues. Assessment and Plan Additional Plan Proceed with Lexiscan stress test
--- NOTE | 2020-10-06 10:52 | WPDMODSED ---
Moderate Sedation Note-Pt Data Patient Data Allergies Allergy/AdvReac Type Severity Reaction Status Date / Time No Known Drug Allergies Allergy Unknown * Verified 10/05/20 07:47 Home Medications Medication Instructions Recorded Confirmed Type amlodipine 10 mg PO DAILY 03/10/19 10/05/20 History atorvastatin 40 mg PO DAILY 03/10/19 10/05/20 History clopidogrel 75 mg PO DAILY 03/10/19 10/05/20 History doxepin 50 mg PO HS 03/10/19 10/05/20 History duloxetine 60 mg PO DAILY 03/10/19 10/05/20 History ergocalciferol (vitamin D2) 50,000 unit PO WEEKLY 03/10/19 10/05/20 History [Vitamin D2] furosemide 20 mg PO DAILY 03/10/19 10/05/20 History gabapentin 1,200 mg PO HS 03/10/19 10/05/20 History losartan 100 mg PO DAILY 03/10/19 10/05/20 History metoprolol tartrate 25 mg PO Q12H 03/10/19 10/05/20 History aspirin 81 mg PO DAILY 01/19/20 10/05/20 History oxycodone 40 mg PO Q12H 01/19/20 10/05/20 History oxycodone-acetaminophen [Percocet] 1 tablet PO Q6H PRN 01/19/20 10/05/20 History pantoprazole [Protonix] 40 mg PO HS 01/19/20 10/05/20 History temazepam 30 mg PO HS PRN 01/19/20 10/05/20 History Current Medications: Active Medications Acetaminophen (Acetaminophen 325 Mg Tablet) 325 mg PO Q6H PRN PRN Reason: Pain Amlodipine Besylate (Amlodipine Besylate 5 Mg Tablet) 10 mg PO DAILY [facility] Last Admin: 10/06/20 08:15 Dose: 10 mg Documented by: Aspirin (Aspirin 81 Mg Chewable Tablet) 81 mg PO DAILY [facility] Last Admin: 10/06/20 08:15 Dose: 81 mg Documented by: Atorvastatin Calcium (Atorvastatin 40 Mg Tablet) 40 mg PO DAILY [facility] Last Admin: 10/06/20 08:14 Dose: 40 mg Documented by: Clopidogrel Bisulfate (Clopidogrel Bisulfate 75 Mg Tablet) 75 mg PO DAILY [facility] Last Admin: 10/06/20 08:14 Dose: 75 mg Documented by: Doxepin HCl (Doxepin Hcl 25 Mg Capsule) 50 mg PO [facility] Last Admin: 10/05/20 21:13 Dose: 50 mg Documented by: Duloxetine HCl (Duloxetine Hcl 60 Mg Capsule.) 60 mg PO DAILY [facility] Last Admin: 10/06/20 08:15 Dose: 60 mg Documented by: Ergocalciferol (Ergocalciferol 50,000 Unit Capsule) 50,000 unit PO Tu@0900 [facility] Gabapentin (Gabapentin 400 Mg Capsule) 1,200 mg PO [facility] Last Admin: 10/05/20 21:13 Dose: 1,200 mg Documented by: Sodium Chloride (Normal Saline Iv) 1,000 mls @ 125 mls/hr IV CONT .Q8H [facility] Last Admin: 10/06/20 08:14 Dose: 125 mls/hr Documented by: Metoprolol Tartrate (Metoprolol Tartrate 25 Mg Tablet) 25 mg PO Q12HR [facility] Last Admin: 10/06/20 08:15 Dose: 25 mg Documented by: Oxycodone HCl (Oxycodone Hcl (*Crx) 40 Mg Tab Sr 12hr) 40 mg PO Q12HR [facility] Last Admin: 10/06/20 08:15 Dose: 40 mg Documented by: Oxycodone HCl (Oxycodone Hcl (*Crx) 5 Mg Tab Ir) 10 mg PO Q6H PRN PRN Reason: Pain Pantoprazole Sodium (Pantoprazole 40 Mg Tablet) 40 mg PO [facility] Last Admin: 10/05/20 21:13 Dose: 40 mg Documented by: Temazepam (Temazepam (*Crx) 15 Mg Capsule) 30 mg PO HS PRN PRN Reason: Insomnia Sedation/Anesthesia: No previous sedation/anesthesia problems (including family history). [facility] Past Medical History Medical History (Updated 10/05/20 @ 04:32 by Anand Gregory MD) Arthritis CAD (coronary artery disease) Depression GERD (gastroesophageal reflux disease) History of angina History of kidney stones Hypercholesteremia Hypertension Meniere's disease Pneumonia Surgical History Surgical History History of inguinal hernia repair History of tonsillectomy Hx of cardiac cath stents x4 Family History Family History Mother Myocardial infarct Cancer Hypertension Father Myocardial infarct Social History Social History Smoking status: Never smoker Second hand tobacco smoke exposure: No Alcohol intake: never Substance use: never Substance use type: does not use Gender identity
--- NOTE | 2020-10-06 12:59 | EST_ITS ---
Patient Info Name: Sammy Escamilla Age: 60 years : 1960 Gender: Male Ht: 69 in Wt: 217 lbs BSA: 2.22 m2 Exam Date: 10/06/2020 3:19 PM Exam Location: [facility] [place] Stress Patient Status: Outpatient Admit Date: 10/05/2020 Staff Ordering Physician: Alison Lira MD Attending Provider: Lily Alegria DO Exercise Technologist: Izzy Birmingham RDCS Exercise Physician: Sugar Medina MD Exam Type: CA stress jesus w NM Study Info Indications R07.9 - Chest pain, unspecified A regadenoson stress test was performed. Summary 1. No abnormal ST-T wave changes with lexiscan. 2. Nuclear test results to follow. Protocol: Lexiscan Stress ECG Details Stage: REST Duration (min): 0 min : 49 sec HR (bpm): 65 SBP (mmHg): 151 DBP (mmHg): 85 Stage: REST Duration (min): 5 min : 18 sec HR (bpm): 68 SBP (mmHg): 151 DBP (mmHg): 85 Stage: STAGE 1 Duration (min): 1 min : 0 sec HR (bpm): 86 SBP (mmHg): 151 DBP (mmHg): 85 Stage: RECOVERY Duration (min): 1 min : 0 sec HR (bpm): 109 SBP (mmHg): 123 DBP (mmHg): 55 Stage: RECOVERY Duration (min): 2 min : 0 sec HR (bpm): 105 SBP (mmHg): 123 DBP (mmHg): 55 Stage: RECOVERY Duration (min): 3 min : 0 sec HR (bpm): 96 SBP (mmHg): 132 DBP (mmHg): 68 Stage: RECOVERY Duration (min): 4 min : 0 sec HR (bpm): 102 SBP (mmHg): 132 DBP (mmHg): 68 Stage: RECOVERY Duration (min): 5 min : 0 sec HR (bpm): 101 SBP (mmHg): 136 DBP (mmHg): 70 Stage: RECOVERY Duration (min): 5 min : 3 sec HR (bpm): 102 SBP (mmHg): 136 DBP (mmHg): 70 Rest HR: 68 bpm Peak HR: 114 bpm Rest Sys BP: 151 mmHg Peak Sys BP: 138 mmHg Max Pred HR: 162 bpm % Max Pred HR: 70 % Target HR: 138 bpm Max RPP: 15,732 bpm*mmHg BP Response: Normal blood pressure response Termination Reason: Completed protocol Cardiac Symptoms: None Total Time: 1 min : [address] BP: [address] BP: 70 mmHg Total Dose: 0.4 mg Resting ECG Normal sinus rhythm - normal ECG. Stress ECG No abnormal ST/T wave changes with exercise. Arrhythmias None. Report Signatures
--- NOTE | 2020-10-06 16:53 | PM.IMPN ---
Progress Note: A&P Assessment and Plan (1) Acute kidney injury: Code(s): N17.9 - Acute kidney failure, unspecified Status: Acute (2) Atypical chest pain: Code(s): R07.89 - Other chest pain Status: Acute (3) Rheumatoid arthritis: Code(s): M06.9 - Rheumatoid arthritis, unspecified Status: Chronic (4) Hypertension: Code(s): I10 - Essential (primary) hypertension Status: Chronic (5) Hypercholesteremia: Code(s): E78.00 - Pure hypercholesterolemia, unspecified Status: Chronic (6) GERD (gastroesophageal reflux disease): Code(s): K21.9 - Gastro-esophageal reflux disease without esophagitis Status: Chronic (7) CAD (coronary artery disease): Code(s): I25.10 - Atherosclerotic heart disease of [place] coronary artery without angina pectoris Status: Chronic (8) Chronic anemia: Code(s): D64.9 - Anemia, unspecified Status: Chronic Additional Plan # Atypical chest pain: EKG with non specific st t changes. tropoinin serial has been negative. undelrying hx of multivessel cad. cardiology on board. awaiting resolution of jesica which is new for further ischemic workup. patient favoring cath over stress test. continue apsirin, plavix, bb, statin. s/p cath 10/06: 1- left coronary artery is a large artery that divides into large LAD, large circumflex artery. Left main isFree of disease. 2- left anterior descending artery is a large artery that runs and wraps around the apex. Has a patent stent distally at the apex. In the mid segment there is about 60% stenosis and Worst in the NOLAND caudal views. large diagonal branch of the segment with diffuse irregularities. 3- leftcircumflex artery is a large artery With minimal irregularities in the mid segment large OM1 with minimal irregularities. 4- right coronary artery is Large artery dominant and has patent stents proximally and then the mid segment. 5- LVEDP was 15 mm Hg and no gradient across aortic valve. 6- opening arterial pressure was 1671/100 and closing pressure was 140/90 7- right femoral artery angiogram shows no significant disease in the right common femoral artery. 8- attempted IFR of the LAD which could not be performed due to technical issues in the dental laboratory technician. Conclusion:: Intermediate lesion in the LAD with inability to do IFR in the dental laboratory technician despite attempt to do that due to technical issues. he underwent stress test following this which showed: 1. Normal myocardial perfusion at rest and during stress. 2. Left ventricular ejection fraction measuring >70%. for other noncardiac etiologies, will check d dimer for any PE. chest xarys normal. could also be related to reflux disease, already on PPI # JESICA: new. cr of 2.1. unclear etiology. on lasix and lsoartan, which will be held. started on ivf. cr back to normal today. stop ivf. # Multivessel cad s/p pci with 4 stents, 1 in 2013, 1 in 2017 [address] Brand. continue aspirin, plavix, statin, bb # HTN: resume home medicaiton.s hold losartan and lasix due to jesica. will resume in am if stable. # Chronic back pain from past injuries/disc herniation: on oxygcodoen. resume # insomina: on doxepin/temazepam # GERD: ppi # HLP: statin # DVT proph: lovenox # Full code status . Subjective Date/time seen: 10/06/20 16:53 Interval history: under went cath and then stres test. awaiting fruther workup. he intermittently still getting the chest pains here. sob on exertion. no nausea, vomiting. Review of Systems Review of Systems: All systems reviewed & are unremarkable except as noted in HPI and below Constitutional: Constitutional: Reports fatigue and Reports weakness Neurologic: Reports weakness Endocrine: Endocrine: Reports fatigue Exam Narrative: Exam Narrative: GENERAL: The patient is well developed, not in acute distress HEENT: Nonicteric sclerae, PERRLA, EOMI. Oropharynx clear. Moist mucous membranes. Conjunctivae appear well perf
[2020-10-06 17:55] LABS: D Dimer 0.27 ug/mL (<0.48)
[2020-10-06] MEDS: GABAPENTIN 400 MG CAPSULE 1200 MG PO (20:57)
[2020-10-06] MEDS: DOXEPIN HCL 25 MG CAPSULE 50 MG PO (20:57)
[2020-10-06] MEDS: PANTOPRAZOLE 40 MG TABLET PO (20:58)
[2020-10-07] VITALS (7 sets, daily range): BP systolic 115–130; BP diastolic 70–79; PULSE 56–90; RESP 14–16; TEMP 36.2–36.6; O2SAT 97–100
[2020-10-07 05:23] LABS: Eosinophils Absolute Auto 0.2 K/mm3 (0-0.3); Hematocrit 32.5 % (42.0-52.0); Hemoglobin 10.4 g/dL (14.0-18.0); Immature Granulocyte Absolute 0.01 K/mm3 (0.00-0.031); Immature Granulocyte Percent A 0.2 % (0-0.5); Lymphocytes Absolute Auto 2.31 K/mm3 (0.9-3.2); Lymphocytes Percent Auto 55.3 % (18.3-44.2); Mean Corpuscular Hemoglobin 32.5 pg (26-34); Mean Corpuscular Volume 101.6 fl (80-100); Mean Platelet Volume 10.7 fl (7.4-10.4); Monocytes Absolute Auto 0.4 K/mm3 (0.1-0.6); Monocytes Percent Auto 8.4 % (2.6-8.5); Neutrophils Absolute Auto 1.3 K/mm3 (1.3-6.7); Neutrophils Percent Auto 30.1 % (45.5-73.1); Platelet Count Result 257 k/mm3 (150-375); Red Cell Distribution Width 12.4 % (11.5-14.5); White Blood Count 4.2 K/mm3 (4.5-10.0)
[2020-10-07 05:36] LABS: Anion Gap 6 mmol/L (8-16); Blood Urea Nitrogen 12 mg/dL (9-20); Calcium 8.8 mg/dL (8.4-10.2); Carbon Dioxide 26 mmol/L (22-30); Chloride 110 mmol/L (98-107); Estimated CRCL calculation 82 ml/min; Estimated Glomerular Filt Rate > 60; Glucose 101 mg/dL (75-110); Potassium 3.8 mmol/L (3.4-5.0); Sodium 142 mmol/L (137-145)
[2020-10-07] MEDS: CLOPIDOGREL BISULFATE 75 MG TABLET PO (08:35)
[2020-10-07] MEDS: DULoxetine HCL 60 MG CAPSULE.DR PO (08:35)
[2020-10-07] MEDS: amLODIPine BESYLATE 5 MG TABLET 10 MG PO (08:35)
[2020-10-07] MEDS: ATORVASTATIN 40 MG TABLET PO (08:36)
[2020-10-07] MEDS: METOPROLOL TARTRATE 25 MG TABLET PO (08:36)
[2020-10-07] MEDS: oxyCODONE HCL (*CRX) 40 MG TAB SR 12HR PO (08:41)
[2020-10-07] MEDS: ASPIRIN 81 MG CHEWABLE TABLET PO (08:42)
--- NOTE | 2020-10-07 11:04 | PM.DS ---
DS: Admitting Diagnosis Admitting Diagnosis Admitting Diagnosis: chest pain DS: Discharge Diagnosis Discharge Diagnosis (1) Acute kidney injury: Code(s): N17.9 - Acute kidney failure, unspecified Status: Acute (2) Atypical chest pain: Code(s): R07.89 - Other chest pain Status: Acute (3) Rheumatoid arthritis: Code(s): M06.9 - Rheumatoid arthritis, unspecified Status: Chronic (4) Hypertension: Code(s): I10 - Essential (primary) hypertension Status: Chronic (5) Hypercholesteremia: Code(s): E78.00 - Pure hypercholesterolemia, unspecified Status: Chronic (6) GERD (gastroesophageal reflux disease): Code(s): K21.9 - Gastro-esophageal reflux disease without esophagitis Status: Chronic (7) CAD (coronary artery disease): Code(s): I25.10 - Atherosclerotic heart disease of [place] coronary artery without angina pectoris Status: Chronic (8) Chronic anemia: Code(s): D64.9 - Anemia, unspecified Status: Chronic DS: Summary Hospital Course Reason for hospitalization: chest pain Hospital Course: # Atypical chest pain: EKG with non specific st t changes. tropoinin serial has been negative. undelrying hx of multivessel cad. cardiology on board. he was noted to have jesica on admission, resovledw ith ivf and hydration. continue apsirin, plavix, bb, statin. subsequently, he underwent cardiac cath: s/p cath 10/06: 1- left coronary artery is a large artery that divides into large LAD, large circumflex artery. Left main isFree of disease. 2- left anterior descending artery is a large artery that runs and wraps around the apex. Has a patent stent distally at the apex. In the mid segment there is about 60% stenosis and Worst in the NOLAND caudal views. large diagonal branch of the segment with diffuse irregularities. 3- leftcircumflex artery is a large artery With minimal irregularities in the mid segment large OM1 with minimal irregularities. 4- right coronary artery is Large artery dominant and has patent stents proximally and then the mid segment. 5- LVEDP was 15 mm Hg and no gradient across aortic valve. 6- opening arterial pressure was 1671/100 and closing pressure was 140/90 7- right femoral artery angiogram shows no significant disease in the right common femoral artery. 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 Conclusion:: Intermediate lesion in the LAD with inability to do IFR in the boot and shoe laborer despite attempt to do that due to technical issues. he underwent stress test following this which showed: 1. Normal myocardial perfusion at rest and during stress. 2. Left ventricular ejection fraction measuring >70%. for other noncardiac etiologies, checked d dimer which came back negative. with normal stress test, the intermediate lesion in the LAD likely not significant. okayed per cardiology to go home. could also be related to reflux disease, already on PPI # JESICA: new. cr of 2.1. unclear etiology. on lasix and lsoartan, which will be held. started on ivf. cr back to normal and ivf stopped. resume home medications. # Multivessel cad s/p pci with 4 stents, 1 in 2013, 1 in 2017 and [address] Brand. continue aspirin, plavix, statin, bb # HTN: resume home medicaiton.s hold losartan and lasix due to jesica. resumed at discharge. # Chronic back pain from past injuries/disc herniation: on oxycodone. resume # insomina: on doxepin/temazepam # GERD: ppi # HLP: statin # DVT proph: lovenox # Full code status Status at Discharge Functional status at discharge: independent ambulation Overall status at discharge: patient is back to baseline Time Spent with Patient Time attestation: Total time spent providing and/or coordinating discharge services:40 mins Exam Narrative: Exam Narrative: GENERAL: The patient is well developed, not in acute distress HEENT: Nonicteric sclerae, PERRLA, EOMI. Oropharynx chang
--- NOTE | 2020-10-07 11:21 | PM.PNCARD ---
Progress Note: A&P Assessment and Plan (1) Atypical chest pain: Code(s): R07.89 - Other chest pain Status: Acute Assessment and Plan: Patient admitted from the emergency department with a 2-3week complain of intermittent chest pain. Pain was located in the low substernal to epigastric area and was sharp. He also describes associated weakness in his arms and palm clamminess. He has a known history of multivessel coronary disease and has had coronary angiogram as recently as 2018. He was taken to the cardiac catheterization lab for coronary angiogram again on 10/06/2020 where angiography revealed about 50% stenosis of his LAD. Unfortunately, IFR was unable to be performed in the biology laboratory assistant. Therefore, he was taken to the cardiac stress lab for nuclear stress test. Stress test revealed normal myocardial perfusion at rest and during stress. This point in time we do not have any further cardiac recommendations. We will follow up with him as an outpatient in 2-3 weeks. He understands that he is to call the office with any ongoing chest pain. Subjective Date/time seen: 10/07/20 11:21 Interval history: Cardiology follow-up for chest pain Date of service 10/07/2020: Patient underwent left heart catheterization yesterday. 50-60% stenosis of the LAD was seen on angiography. IFR was attempted but was unable to be completed. Therefore, patient was sent to the stress lab for nuclear stress imaging. Stress imaging showed 1. Normal myocardial perfusion at rest and during stress, 2. Left ventricular ejection fraction measuring >70%. Review of Systems Review of Systems: ROS unobtainable: Yes unobtainable due to medical condition Constitutional: Constitutional: Reports fatigue Eyes: Eyes: Reports no additional eye complaints ENT: Reports system reviewed and no additional complaints, except as documented Cardiovascular: Cardiovascular: Reports as per HPI and Reports chest pain Respiratory: Respiratory: Reports no additional respiratory complaints Gastrointestinal: Gastrointestinal: Reports no additional gastrointestinal complaints Musculoskeletal: Musculoskeletal: Reports no additional musculoskeletal complaints Integumentary/Breasts: Skin/Breast: Reports system reviewed and no additional complaints, except as docu Neurologic: Reports system reviewed and no additional complaints, except as documented Endocrine: Endocrine: Reports fatigue Hematologic/Lymphatic: Hematologic/Lymphatic: Reports no additional hematologic/lymphatic complaints Allergic/Immunologic: Allergic/Immunologic: Reports no additional allergic/immunologic complaints Exam Const: General: comfortable and no acute distress HENMT: Mouth: Yes moist mucous membranes Eyes: Sclera: sclerae normal Pupils: Equal, round and reactive pupils present Neck: Neck: supple and no JVD Thyroid: thyroid normal Resp: Effort & Inspection: normal respiratory effort Auscultation: clear to auscultation bilaterally Cardio: Rate: regular rate Rhythm: regular rhythm Other: No gallop no murmur no rub GI: Auscultation: normal bowel sounds Skin: General skin exam: normal color Other: Right groin left heart catheterization catheter site free from swelling, hematoma, bleeding, pain Neuro: Cranial nerves: Yes Equal, round and reactive pupils present Cognition (Neuro): normal cognition Extrem: General: normal to inspection Other: No pitting edema normal distal pulses in all 4 limbs. Objective Data Vital Signs Vital Signs: Vital Signs - 24 hr 10/06/20 12:15 10/06/20 12:30 10/06/20 12:45 Temperature 36.4 C L Pulse Rate 66 60 60 Pulse Rate [Right Pedal (Dorsalis Pedis) Palpation] Respiratory Rate 12 10 L 12 Blood Pressure 128/73 134/71 125/74 Pulse Oximetry 95 96 96 10/06/20 13:00 10/06/20 13:15 10/06/20 13:45 Temperature 35.8 C L Pulse Rate 65 60 70 Pulse Rate [Right Pedal (Dorsalis Pedis) Palpation] Respiratory Rate 13 14 16 Blood
== END 2020-10-07 12:35 | disposition home or self-care (01) ==
LOC: ANHED 10-05 00:05 → ANHIMU 10-06 09:47
PROVIDERS: Emergency Medicine; Internal Medicine Cardiovascular Disease; Specialist; Admitting Provider Internal Medicine; Emergency Provider Emergency Medicine; PCP Internal Medicine; Visit Provider Internal Medicine
PROC: 4A023N7 Measurement of Cardiac Sampling and Pressure, Left Heart, Percutaneous Approach (ICD-10-PCS; CPT 93452; principal; 2020-10-06 11:00)
PROC: 4A033BC Measurement of Arterial Pressure, Coronary, Percutaneous Approach (ICD-10-PCS; CPT 93571; 2020-10-06 11:00)
DX: R07.89 Other chest pain (principal); N17.9 Acute kidney failure, unspecified; I25.84 Coronary atherosclerosis due to calcified coronary lesion; K21.9 Gastro-esophageal reflux disease without esophagitis; I10 Essential (primary) hypertension; M06.9 Rheumatoid arthritis, unspecified; D64.9 Anemia, unspecified; Z95.5 Presence of coronary angioplasty implant and graft
CPT/HCPCS: 36415; 71046; 78452; 80048; 84484; 85025; 85380; 85610; 85730; 93005; 93017; 93458; 93571; 96360; 96361; 99285; A9270; A9502; C1760; C1769; C1887; C1894; G0269; G0378; J0583; J1644; J2250; J2785; J3010; J7030; J7040

== ENCOUNTER 2021-11-22 00:52 | Day surgery (SDC) | payer BC, SELFPAY ==
[2021-11-21 13:14] VITALS: BMI 33.3
[2021-11-22] VITALS (9 sets, daily range): BP systolic 104–138; BP diastolic 63–90; PULSE 62–74; RESP 11–18; TEMP 36.6; O2SAT 96–99; BMI 34.6
[2021-11-22 07:24] LABS: Basophils Absolute Auto 0.1 K/mm3 (0.0-0.1); Basophils Percent Auto 1.5 % (0.2-1.2); Eosinophils Absolute Auto 0.4 K/mm3 (0-0.3); Eosinophils Percent Auto 10.2 % (0-4.4); Hematocrit 37.3 % (42.0-52.0); Hemoglobin 12.1 g/dL (14.0-18.0); Lymphocytes Absolute Auto 2.08 K/mm3 (0.9-3.2); Lymphocytes Percent Auto 53.1 % (18.3-44.2); Mean Corpuscular HGB Conc 32.4 g/dl (32-36); Mean Corpuscular Hemoglobin 32.6 pg (26-34); Mean Corpuscular Volume 100.5 fl (80-100); Mean Platelet Volume 10.2 fl (7.4-10.4); Monocytes Absolute Auto 0.4 K/mm3 (0.1-0.6); Monocytes Percent Auto 9.2 % (2.6-8.5); Platelet Count Result 235 k/mm3 (150-375); Red Blood Count 3.71 M/mm3 (4.6-6.20); Red Cell Distribution Width 12.9 % (11.5-14.5); White Blood Count 3.9 K/mm3 (4.5-10.0)
[2021-11-22 07:36] LABS: Anion Gap 8 mmol/L (8-16); Blood Urea Nitrogen 15 mg/dL (9-20); Calcium 8.7 mg/dL (8.4-10.2); Carbon Dioxide 29 mmol/L (22-30); Chloride 103 mmol/L (98-107); Estimated CRCL calculation 66 ml/min; Estimated Glomerular Filt Rate > 60; Glucose 103 mg/dL (65-110); Potassium 4.1 mmol/L (3.4-5.0); Sodium 140 mmol/L (137-145)
[2021-11-22 07:42] LABS: Prothrombin Time 13.2 Seconds (11.1-14.7)
[2021-11-22] MEDS: SODIUM CHLORIDE 0.9% IV 500 ML 100 ML IV CONT (07:59)
--- NOTE | 2021-11-22 08:32 | WPDMODSED ---
Moderate Sedation Note-Pt Data Patient Data Diagnosis: Coronary artery disease with previous percutaneous revascularization chest pain syndrome which is atypical of angina Present Complaint: intermittent sharp prickley chest pain Procedure to be performed/Plan: coronary angiography Allergies Allergy/AdvReac Type Severity Reaction Status Date / Time No Known Drug Allergies Allergy Unknown * Verified 11/22/21 08:33 Home Medications Medication Instructions Recorded Confirmed Type amlodipine 10 mg tablet 10 mg PO DAILY 03/10/19 11/22/21 History atorvastatin 40 mg tablet 40 mg PO DAILY 03/10/19 11/22/21 History clopidogrel 75 mg tablet 75 mg PO DAILY 03/10/19 11/22/21 History doxepin 25 mg capsule 50 mg PO HS 03/10/19 11/22/21 History duloxetine 30 mg capsule,delayed 60 mg PO DAILY 03/10/19 11/22/21 History release ergocalciferol (vitamin D2) 1,250 50,000 unit PO WEEKLY 03/10/19 11/22/21 History mcg (50,000 unit) capsule (Vitamin D2) furosemide 20 mg tablet 20 mg PO DAILY 03/10/19 11/22/21 History gabapentin 600 mg tablet 1,200 mg PO HS 03/10/19 11/22/21 History losartan 100 mg tablet 100 mg PO DAILY 03/10/19 11/22/21 History metoprolol tartrate 25 mg tablet 25 mg PO Q12H 03/10/19 11/22/21 History aspirin 81 mg chewable tablet 81 mg PO DAILY 01/19/20 11/22/21 History oxycodone 40 mg tablet,crush 40 mg PO Q12H 01/19/20 11/22/21 History resistant,extended release 12 hr pantoprazole 40 mg tablet,delayed 40 mg PO HS PRN Acid Reflux 01/19/20 11/22/21 History release (Protonix) temazepam 30 mg capsule 30 mg PO HS PRN Insomnia 01/19/20 11/22/21 History folic acid 1 mg tablet 1 mg PO DAILY 11/22/21 11/22/21 History hydroxychloroquine 200 mg tablet 200 mg PO DAILY 11/22/21 11/22/21 History methotrexate sodium 2.5 mg tablet 10 mg PO WEEKLY 11/22/21 11/22/21 History multivitamin 1 tablet PO DAILY 11/22/21 11/22/21 History nitroglycerin 0.4 mg sublingual 0.4 mg sublingual Q5M PRN Chest 11/22/21 11/22/21 History tablet Pain omega-3 fatty acids-vitamin E 1 cap PO DAILY 11/22/21 11/22/21 History 1,000 mg capsule oxycodone 20 mg tablet 20 mg PO Q6H PRN Pain 11/22/21 11/22/21 History sildenafil 25 mg tablet 25 mg PO DAILY PRN Erectile 11/22/21 11/22/21 History Dysfunction turmeric 400 mg capsule 400 mg PO DAILY 11/22/21 11/22/21 History Current Medications: Active Medications Sodium Chloride (Normal Saline Iv) 500 mls @ 100 mls/hr IV CONT .Q5H JOSESITO Last Admin: 11/22/21 07:59 Dose: 100 mls/hr Sedation/Anesthesia: No previous sedation/anesthesia problems (including family history). [facility] Past Medical History Medical History (Updated 10/05/20 @ 04:32 by Anand Gregory MD) Arthritis CAD (coronary artery disease) Depression GERD (gastroesophageal reflux disease) History of angina History of kidney stones Hypercholesteremia Hypertension Meniere's disease Pneumonia Surgical History Surgical History History of inguinal hernia repair History of tonsillectomy Hx of cardiac cath stents x4 Family History Family History Mother Myocardial infarct Cancer Hypertension Father Myocardial infarct Social History Social History Smoking status: Never smoker Second hand tobacco smoke exposure: No Alcohol intake: current Drinks per week: 6 Substance use: never Substance use type: does not use Living arrangements: alone Gender identity (if verbalized by the patient): Male Spiritual care concerns: No Mod Sed Physical Exam Physical Exam Pre Procedural Exam: Normal: Appearance, Throat, Airway, Lungs, Heart Size, Heart Rate, Heart Rhythm, Neuro Exam, Abdomen and Extremities Hours since solid foods: 12 Hours since liquid intake: 12 Mallampati Classification: class II Internal Medicine - P
--- NOTE | 2021-11-22 09:14 | WPDCARDPROC ---
Cardiac Cath Procedure Note Date of procedure:: 11/22/21 Performing physician:: Luan Osei MD Indication:: History of coronary artery disease with previous interventional revascularization chest pain syndrome which is atypical of angina Brief clinical history:: this is a 61-year-old gentleman with history of coronary disease previous stenting of the distal LAD, distal circumflex and proximal to mid RCA. He has been experiencing chest pain episodes that he describes as a brief intermittent prickling sensation in the left lateral chest wall. Procedure Procedure performed:: Left ventriculogram coronary angiogram Angio-Seal to right femoral artery Sedation/Medication given:: fentanyl 50 mg Versed 2 mg case start time 8:43 a.m. case end time 9:03 a.m. sedation provided by Lizzeth Wei RN, trained observer Access site:: right femoral artery Estimated blood loss:: 20 cc Procedure note:: patient was brought to the cardiac catheterization lab in the postabsorptive state where the right femoral triangle was prepared in normal fashion. Anesthesia was provided with 1% lidocaine infiltrated locally. Using the modified Seldinger technique a 5 Mosoth[place] sheath was placed to right common femoral artery after this left heart catheterization was carried out. I used a 5 [place]oth[place] angled pigtail catheter to document left-sided hemodynamics and to inject LV g NOLAND projection. After this I used a 5 [place] FL4 catheter to engage and inject the left coronary artery in multiple projections and then a 5 [place]oth[place] JR4 catheter to engage and inject the right coronary artery. After this the femoral angiogram was done through the sheath and an Angio-Seal device was deployed with a good hemostatic result. 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 Findings:: Hemodynamics: Central aortic pressure 156/82 left ventricle 156/0 end-diastolic pressure is 18 there is no gradient pullback across the aortic valve. Left ventricle: The LV is normal size all segments appear to contract appropriately the global ejection fraction visually estimates to be 60-65%. The left main coronary artery is nicely patent the left anterior descending is a large caliber vessel. There is mild stenosis of about 40-50% in the LAD just after the major diagonal takes its origin. This does not appear to be flow limiting and does not appear to be angiographically any different compared to September of last year. There is distal stent material in the LAD which were also remains nicely patent. The major diagonal branch has mild diffuse disease angiographically also unchanged compared to previous exam. The circumflex is a moderate caliber vessel giving rise to the marginal branches the 2nd marginal branch has visible stent material in the distal portion which remains nicely patent. There are no other lesions in the circumflex system. The right coronary artery is small to medium in caliber is codominant. The right coronary artery has visible stent material proximally to the midportion which remains nicely patent with no loss of lumen. There appears to be about 60% stenosis at the beginning of the RPDA which is relatively small artery in this gentleman. Conclusion:: 1. Codominant coronary artery circulation with previously deployed stents in the distal LAD, distal 2nd OM and proximal to mid right coronary artery all which remain nicely patent. 2. Otherwise angiographically mild coronary disease which appears to be unchanged in comparison to angiograms that were done in September of 2020. after that exam the patient had a negative nuclear stress test 3. normal left ventricular systolic function Luan Osei MD [facility]
--- NOTE | 2021-11-22 11:29 | SUR.PHASEII ---
Pt up to a chair without difficuty, groin site clear, no drainge or hematoma, pedal pulses 2+, discharge information discussed. Continue to monitor.
== END 2021-11-22 12:40 | disposition home or self-care (01) ==
PROVIDERS: PCP Internal Medicine; Visit Provider Specialist
PROC: 4A023N7 Measurement of Cardiac Sampling and Pressure, Left Heart, Percutaneous Approach (ICD-10-PCS; CPT 93452; principal; 2021-11-22 08:30)
DX: I25.10 Atherosclerotic heart disease of native coronary artery without angina pectoris (principal); R07.9 Chest pain, unspecified; Z95.5 Presence of coronary angioplasty implant and graft; I10 Essential (primary) hypertension; E78.00 Pure hypercholesterolemia, unspecified; K21.9 Gastro-esophageal reflux disease without esophagitis; F32.A Depression, unspecified; Z79.02 Long term (current) use of antithrombotics/antiplatelets; Z79.82 Long term (current) use of aspirin; Z79.891 Long term (current) use of opiate analgesic
CPT/HCPCS: 36415; 80048; 85025; 85610; 93458; C1760; C1887; C1894; G0269; J7040

== ENCOUNTER 2022-09-19 19:21 | Emergency (ER) | payer BC, SELFPAY ==
[2022-09-19] VITALS (10 sets, daily range): BP systolic 138; BP diastolic 88; PULSE 69–84; RESP 10–18; TEMP 36.2; O2SAT 100
--- NOTE | ~2022-09-19 | XR_ITS ---
EXAMINATION: XR chest 2V Exam Date/Time: 09/19/2022 20:10 CDT HISTORY: Fatigue, SOB, L side chest pain x 3 weeks. Hx stents Comparison: 10/04/2020. RESULT: Lines, tubes, and devices: Coronary stents. Lungs and pleura: Clear. Cardiomediastinal silhouette: Stable. Other: No acute osseous or upper abdominal finding. IMPRESSION: No acute cardiopulmonary process. Reviewed, dictated and finalized at location K.
--- NOTE | 2022-09-19 19:29 | ECG_ITS ---
Measurements Intervals [place] Rate: 73 P: 37 MN: 183 QRS: -11 QRSD: 88 T: 17 QT: 367 QTc: 406 Interpretive Statements SINUS RHYTHM DELAYED PRECORDIAL R/S TRANSITION VOLTAGE CRITERIA FOR LVH BORDERLINE T WAVE ABNORMALITY- ANTERIOR LEADS BORDERLINE ECG COMPARED TO ECG 10/04/2020 21:31:10 NO SIGNIFICANT CHANGES Electronically Signed On 09-19-2022 22:11:49 CDT by Bryan Greenfield D.O.
[2022-09-19 20:05] LABS: Basophils Percent Auto 1.1 % (0.2-1.2); Eosinophils Absolute Auto 0.1 K/mm3 (0-0.3); Eosinophils Percent Auto 2.6 % (0-4.4); Hematocrit 37.5 % (42.0-52.0); Lymphocytes Absolute Auto 1.62 K/mm3 (0.9-3.2); Lymphocytes Percent Auto 42.9 % (18.3-44.2); Mean Corpuscular HGB Conc 34.7 g/dl (32-36); Mean Corpuscular Hemoglobin 33.4 pg (26-34); Mean Corpuscular Volume 96.4 fl (80-100); Mean Platelet Volume 10.5 fl (7.4-10.4); Monocytes Absolute Auto 0.4 K/mm3 (0.1-0.6); Monocytes Percent Auto 11.6 % (2.6-8.5); Neutrophils Absolute Auto 1.6 K/mm3 (1.3-6.7); Neutrophils Percent Auto 41.8 % (45.5-73.1); Platelet Count Result 284 k/mm3 (150-375); Red Blood Count 3.89 M/mm3 (4.6-6.20); Red Cell Distribution Width 13.5 % (11.5-14.5); White Blood Count 3.8 K/mm3 (4.5-10.0)
[2022-09-19 21:04] LABS: Alanine Aminotransferase 20 U/L (6-50); Albumin Level 4.6 g/dL (3.5-5.1); Alkaline Phosphatase 73 U/L (38-126); Anion Gap 7 mmol/L (8-16); Aspartate Amino Transferase 22 U/L (17-59); Bilirubin,Total 1.1 mg/dL (0.2-1.3); Blood Urea Nitrogen 21 mg/dL (9-20); Carbon Dioxide 26 mmol/L (22-30); Chloride 104 mmol/L (98-107); Estimated Glomerular Filt Rate > 60; Glucose 94 mg/dL (65-110); Potassium 3.9 mmol/L (3.4-5.0); Sodium 137 mmol/L (137-145)
[2022-09-19 21:56] LABS: Troponin I 0.016 ng/mL (0.000-0.034)
--- NOTE | 2022-09-19 22:11 | ED.CHESTPAIN ---
HPI - Chest Pain General Chief Complaint: Shortness of Breath/Dyspnea Stated Complaint: SOB/fatigue Time Seen by Provider: 09/19/22 19:35 Source: patient and family Mode of arrival: ambulatory Limitations: no limitations History of Present Illness HPI narrative: 62-year-old with a history of hypertension, CAD here with a complaint of 3-week history of on and off chest pain with mild shortness of breath. Presently has no pain. He denies any cough or fever or chills. Patient states that pain comes sporadically and not with exertion. Patient had cardiac catheterization November 2021 and a patent stent and otherwise rest of the cath was unremarkable. MD complaint: chest pain Pertinent past history: coronary artery disease Onset (ago): week(s) (3) Timing of current episode: episodic Pain location: substernal Pain radiation: none Severity: mild Quality: aching Relieving factors: nothing Exacerbating factors: nothing Context: recent illness Treatment prior to arrival: none Risk Factors Coronary artery disease risk factors: hyperlipidemia and hypertension Thoracic aortic dissection risk factors: none Related Data Home Medications Medication Instructions Recorded Confirmed amlodipine 10 mg tablet 10 mg PO DAILY 03/10/19 11/22/21 atorvastatin 40 mg tablet 40 mg PO DAILY 03/10/19 11/22/21 clopidogrel 75 mg tablet 75 mg PO DAILY 03/10/19 11/22/21 doxepin 25 mg capsule 50 mg PO HS 03/10/19 11/22/21 duloxetine 30 mg capsule,delayed 60 mg PO DAILY 03/10/19 11/22/21 release ergocalciferol (vitamin D2) 1,250 50,000 unit PO WEEKLY 03/10/19 11/22/21 mcg (50,000 unit) capsule (Vitamin D2) furosemide 20 mg tablet 20 mg PO DAILY 03/10/19 11/22/21 gabapentin 600 mg tablet 1,200 mg PO HS 03/10/19 11/22/21 losartan 100 mg tablet 100 mg PO DAILY 03/10/19 11/22/21 metoprolol tartrate 25 mg tablet 25 mg PO Q12H 03/10/19 11/22/21 aspirin 81 mg chewable tablet 81 mg PO DAILY 01/19/20 11/22/21 oxycodone 40 mg tablet,crush 40 mg PO Q12H 01/19/20 11/22/21 resistant,extended release 12 hr pantoprazole 40 mg tablet,delayed 40 mg PO HS PRN Acid Reflux 01/19/20 11/22/21 release (Protonix) temazepam 30 mg capsule 30 mg PO HS PRN Insomnia 01/19/20 11/22/21 folic acid 1 mg tablet 1 mg PO DAILY 11/22/21 11/22/21 hydroxychloroquine 200 mg tablet 200 mg PO DAILY 11/22/21 11/22/21 methotrexate sodium 2.5 mg tablet 10 mg PO WEEKLY 11/22/21 11/22/21 multivitamin 1 tablet PO DAILY 11/22/21 11/22/21 nitroglycerin 0.4 mg sublingual 0.4 mg sublingual Q5M PRN Chest 11/22/21 11/22/21 tablet Pain omega-3 fatty acids-vitamin E 1 cap PO DAILY 11/22/21 11/22/21 1,000 mg capsule oxycodone 20 mg tablet 20 mg PO Q6H PRN Pain 11/22/21 11/22/21 sildenafil 25 mg tablet 25 mg PO DAILY PRN Erectile 11/22/21 11/22/21 Dysfunction turmeric 400 mg capsule 400 mg PO DAILY 11/22/21 11/22/21 Allergies Allergy/AdvReac Type Severity Reaction Status Date / Time No Known Drug Allergies Allergy Unknown * Verified 09/19/22 19:34 Review of Systems Review of Systems: All systems reviewed & are unremarkable except as noted in HPI and below Constitutional: Constitutional: Reports no additional constitutional complaints Eyes: Eyes: Reports no additional eye complaints ENT: Reports system reviewed and no additional complaints, except as documented Cardiovascular: Cardiovascular: Reports as per HPI Respiratory: Respiratory: Reports no additional respiratory complaints Gastrointestinal: Gastrointestinal: Reports no additional gastrointestinal complaints Musculoskeletal: Musculoskeletal: Reports no additional musculoskeletal complaints Integumentary/Breasts: Skin/Breast: Reports system reviewed and no additional complaints, except as docu Neurologic: Reports system reviewed and no additional complaints, except as documented [facility] Past Medical History Medical History (Updated 09/19/22 @ 22:19 by Alvaro Meek MD) Arthritis CAD (coronary artery disease) Depression
== END 2022-09-19 22:34 | disposition home or self-care (01) ==
PROVIDERS: Emergency Provider Family Medicine; PCP Internal Medicine
DX: R07.9 Chest pain, unspecified (principal); I25.10 Atherosclerotic heart disease of native coronary artery without angina pectoris; I10 Essential (primary) hypertension; E78.00 Pure hypercholesterolemia, unspecified; M19.90 Unspecified osteoarthritis, unspecified site; K21.9 Gastro-esophageal reflux disease without esophagitis; H81.09 Meniere's disease, unspecified ear; Z95.5 Presence of coronary angioplasty implant and graft; Z87.01 Personal history of pneumonia (recurrent); Z87.442 Personal history of urinary calculi; Z79.82 Long term (current) use of aspirin
CPT/HCPCS: 36415; 71046; 80053; 84484; 85025; 93005; 99284